=== PATIENT | female | born 1980 | race Caucasian/White ===

== ENCOUNTER 2016-08-05 03:51 | Emergency (ER) | payer MEDICARE ==
[~2016-08-05] VITALS: Ht 170.2 cm; Wt 70.3 kg
[2016-08-05] MEDS ORDERED: DAILY MULTIPLE1 T11 PO (03:58)
[2016-08-05] MEDS ORDERED: KEPPRA500 MG PO (03:59)
[2016-08-05] MEDS ORDERED: IRON TABLETS325 MG PO (04:00)
[2016-08-05] MEDS ORDERED: LEVOTHYROXIN0.025 M1 PO (04:00)
--- NOTE | 2016-08-05 04:03 | Emergency Room Report ---
History of Present Illness Time Seen by [id number] Presenting Problem in Triage Pt arrived:Ambulance Stretcher Presenting Problem:PT COMPLAINING OF PAIN IN LEFT FLANK AND LOWER BACK AREA. PT STATES THAT IT STARTED ABOUT AN HOUR AGO. PT STATES IT HAS BEEN GOING ON FOR 2 DAYS. Onset of symptoms date/time:/ or onset unknown for:MEDICAL HX UNKNOWN Treatment Prior to Arrival: PT TRANSPORTED TO ED BY EMS. IV STARTED IN LEFT FOREARM. 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 N Clinical Suspician of Infection? N Mental Status: 1 - Regular (Normal Baseline) Sepsis Risk:Low Sepsis Risk Have you (or family members/close friends) recently traveled outside the [place]? N If Yes, where/when: Have you had exposure to infectious disease within the past month? N TB? Other? Specify: Source patient, RN notes reviewed, EMS, old records Exam Limitations no limitations Comment 2 day hx of lt flank pain w/o fever or trauma and no rash Cardiac Chest Pain Chest pain indicative of cardiac No Timing/Duration this evening Severity moderate ALLERGIES Coded Allergies: doxycycline (08/05/16) latex (08/05/16) sulfamethoxazole (From BACTRIM) (08/05/16) trimethoprim (From BACTRIM) (08/05/16) Home Medications Reported Medications MULTIVITAMIN (Daily Multiple Vitamin) 1 TAB PO DAILY Levetiracetam (Keppra) 500 MG PO DAILY Levothyroxine Sodium (Levothyroxine 0.025MG) 0.025 MG PO DAILY Ferrous Sulfate (Iron Tablet) 325 MG PO DAILY History Medical History General CAD? No Angina: No PR: No Hypertension? No Hyperlipidemia? No CHF? No DVT? No PE? No COPD? No Asthma? No Anemia? No GERD? No Gastric ulcers? No GI Bleed? No Hernia? No Thyroid Problems? No Hypothyroidism? No CVA? No Seizures? Yes Diabetes? No Renal Insuffiency? No End Stage Renal Disease? No UTI? No Stones? Yes BPH? No GB Disease: No Nephritic Syndrome? No Asplenia? No Hepatitis? No Sickle Cell Disease? No Arthritis? No Migraines? No Cataracts? No Glaucoma? No MRSA? No HIV? No TB? No Anxiety? No Depression? No Cancer? No More? No Immunization Hx DT/Tetanus < 1 Year Ago Surgical Hx Previous Surgery?Y BRAIN SURGERY X 3 [employer] Hx LMP 1 Week Ago Social History Smoking Hx Smoker: Current Every Day Smoker Tobacco: Yes Type Cigarettes Packs/day < 1 Pack Are you/the child exposed to second-hand smoke: Yes Alcohol Alcohol: No Drugs none Review of Systems All Other Systems Reviewed and Negative Constitutional denies fever Eyes denies drainage ENT denies: ear pain, epistaxis, throat pain. Respiratory denies cough, denies shortness of breath, denies wheezing Cardiovascular denies chest pain, denies syncope Gastrointestinal abdominal pain, denies diarrhea, denies vomiting Genitourinary denies: dysuria, frequency, hesitancy, hematuria. Musculoskeletal denies back pain, denies joint pain, denies neck pain Skin denies rash Psychiatric/Neurological denies headache, denies seizure Physical Exam Vital Signs Vital Signs Date Time Temp Pulse Resp B/P Pulse O2 O2 Flow FiO2 Ox Delivery Rate 08/05 0513 79 18 139/79 97 08/05 0434 75 18 138/81 97 08/05 0425 18 08/05 0353 97.8 86 18 136/84 95 - WBC >12,000 or <4,000 or 10% bands? 2 or more SIRS Criteria Met? B/P:139/79 MAP:101 Creatinine >2.0? UA output<0.5ml/kg/hr for 2 hrs? Platelet count >100,000? Lactate >2.0mmol/1? INR >1.2 or PTT > than 60 sec? Evidence of Organ Dysfunction? Provider documented clinical suspician of infection? N Sepsis Criteria Count: 0 Sepsis Risk: Low Sepsis Risk General Appearance no apparent distress Eye Exam - bilateral eye PERRL, bilateral eye EOMI Ear, Nose, Throat normal ENT inspection Neck supple Respiratory Status No: respiratory distress. Lung Sounds bilateral: lungs clear. Cardiovascular regular rate/rhythm Peripheral Pulses Pulses normal Yes Gastrointestinal soft Back no CVA tenderness Extremities normal inspection Strength 4 Upper Ext (L), 4 Upper Ext (R), 4 Lower Ext (L), 4 Lower Ext (R) Neurologic alert, staple cutter II-XII nml as tested, no motor/sensory deficits Reflexes Reflexes normal Yes Mental status normal mood/affect Skin intact Medical Decision Making LABS/Meds/Orders Pt receiving controlled substance in ED? No Results/Orders Laboratory Tests 08/05/16424: Sodium 139, Potassium 3.9, Chloride 107, Carbon Dioxide 20 L, BUN 13, Creatinine 1.0, Estimated Creat Clear 86, Estimated GFR (MDRD) 63, Glucose 107 H, Calcium 8.4 L, Total Bilirubin 0.1 L, AST 15, ALT 35, Alkaline Phosphatase 94, Total Protein 6.3 L, Albumin 3.1 L, Globulin 3.2, Albumin/Globulin Ratio 1.0 L, Amylase 34, Lipase 94, WBC 13.7 H, RBC 4.14 L, Hgb 12.0 L, Hct 34.9 L, MCV 84.2, RDW 14.7, Plt Count 328, Gran % 80.4 H, Gran # 11.0 H, Lymphocytes % 15.2, Monocytes % 4.4, Lymphocytes # 2.1, Monocytes # 0.6, PUBS MCHC 34.4, MCH 29.0 08/05/16409: Urine Color YELLOW, Urine Appearance CLEAR, Urine pH 5.5, Ur Specific [place] >= 1.030, Urine Protein TRACE H, Urine Ketones NEGATIVE, Urine Blood 3+ H, Urine Nitrate NEGATIVE, Urine Bilirubin NEGATIVE, Urine Urobilinogen 0.2, Ur Leukocyte Esterase TRACE H, Urine RBC 5-10, Urine WBC 3-5, Ur Squamous Epith Cells OCC, Amorphous Sediment OCC, Urine Bacteria 1+, Urine Glucose NEGATIVE Current Medication Orders Sig/Renée Start time Last Medication Dose Route Stop Time Status Admin Acetaminophen/ 1 NELSON ONCE ONE 08/05 0645 AC Codeine Phosphate PO 08/05 0646 Levofloxacin 500 MG ONCE ONE 08/05 0545 AC PO 08/05 0646 Morphine Sulfate 2 MG ONCE ONE 08/05 0645 AC IV 08/05 0646 Ketorolac 30 MG ONCE ONE 08/05 0430 DC 08/05 Tromethamine IV 08/05 430 0425 Ketorolac 0 .STK-MED ONE 08/05 042 DC Tromethamine .ROUTE Sodium Chloride 10 ML PRN PRN 08/05 414 AC IV 08/06 402 Orders Procedure Date/time Status DIET-NOTHING BY MOUTH 08/05 B Active CULTURE, URINE 08/[address] ABD & PELVIS W/O CONTRAST 08/[address] ABD/PELVIS REQ 08/05 402 Complete IV SALINE LOCK 08/05 402 Active URINALYSIS/COMPLETE 08/05 402 Complete URINE 08/05 402 Complete LIPASE 08/05 402 Complete CBC WITH AUTO DIFF 08/05 402 Complete CHEM 12 PROFILE 08/05 402 Complete AMYLASE 08/05 402 Complete XRAY/CT/US XRAY/CT/US CT abdomen, pelvis CT interpretation by discussed w/radiologist Time results known: 0559 CT Results abnormal (4 mm stone on lt ) Departure Departure Time of Disposition 632 Disposition DC Home or Self Care(routine) Clinical Impression Primary Impression: Renal colic on left side Condition STABLE Referrals Roxana DUNNE,Shaun Rodrigez MD,[place] Patient Instructions DI for Kidney Stones Additional Instructions fluids and use meds as directed and see pcp and urology Discharge Counseling Counseled pt/family regarding diagnosis, test results, medications/RX, follow up needs Prescriptions Current Visit Scripts HYDROCODONE/ACETAMINOPHEN ([place] 5-325 Tablet) 1 TAB PO Q6HP PRN pain #10 TAB Ciprofloxacin HCl (Cipro 500MG TAB) 500 MG PO BID #14 TAB ED Critical Care Critical Care No at 0640
[2016-08-05 04:24] LABS: URINE BILIRUBIN - DIPSTICK NEGATIVE (NEG); URINE BLOOD 3+ (NEG)
[2016-08-05 04:28] LABS: URINE SQUAMOUS CELLS OCC #/hpf (0-5)
[2016-08-05 04:43] LABS: LYMPH % 15.2 % (10-50.0)
[2016-08-05 04:44] LABS: LYMPH # 2.1 K/mm3 (0.7-4.5)
[2016-08-05] MEDS ORDERED: NORCO 325 MG-51 TAB PO (06:37)
[2016-08-05] MEDS ORDERED: CIPRO 500MG TA500 MG PO (06:37)
[2016-08-05 06:53] VITALS: BP 139/79
--- NOTE | 2016-08-05 08:56 | RADIOLOGY REPORT PS360 ---
CT ABD PELVIS W/O CONTRAST CLINICAL INDICATION: LEFT FLANK PAIN COMPARISON: None TECHNIQUE: Axial images obtained with sagittal and coronal reformats. PROCEDURE: Oral Contrast: None IV Contrast: None . FINDINGS: Lower thorax: Minimal atelectatic or fibrotic changes in the lung bases. ABDOMEN: Liver: No masses or biliary dilatation. Gallbladder: Nondistended. No radio opaque stones. Pancreas: No masses or peripancreatic fluid collections. Spleen: Unremarkable. Adrenals: Unremarkable Kidneys/ureters: There is a 5 mm stone in the proximal left ureter at the L3 level with mild left hydronephrosis and proximal ureteral dilatation with minimal stranding of the perinephric and periureteral fat. PELVIS: Reproductive: 4.6 cm isodense area in the left adnexa probably related to ovarian cyst. Suggest correlation with ultrasound. Bladder: Nondistended. No obvious stones or masses. Appendix: No evidence of appendicitis. ABDOMEN & PELVIS: Stomach bowel: Nondistended. No obvious mass or thickening. Peritoneum: No abnormal fluid collections. No obvious inflammatory changes. No free air. Lymph nodes: No enlarged lymph nodes apparent. Vasculature: No evidence of abdominal aortic aneurysm. No retroperitoneal hemorrhage evident. Bones: No acute fracture IMPRESSION: 1. 5 mm proximal left ureteral stone with mild obstructive uropathy. 2. 4.6 cm isodense lesion left adnexa probably related to ovarian cyst. Recommend further evaluation with ultrasound
== END 2016-08-05 06:54 | disposition home or self-care (01) ==
LOC: ER 03:51
PROVIDERS: Emergency Medicine
DX: N20.1 Calculus of ureter (principal)